=== PATIENT | male | born 1975 | race Caucasian/White ===

== ENCOUNTER → 2020-08-29 | Outpatient (CLI) | payer OTHER ==
[~2020-08-29] MED LIST: FELDENE10 MG PO; NORFLEX 100 MG100 MG PO
== END ==
LOC: KOH-I 13:13
DX: R05 Cough (principal); M54.9 Dorsalgia, unspecified; M48.02 Spinal stenosis, cervical region; M47.812 Spondylosis without myelopathy or radiculopathy, cervical region; M47.816 Spondylosis without myelopathy or radiculopathy, lumbar region
CPT/HCPCS: 71046; 72050; 72070; 72100